=== PATIENT | male | born 1935 | race Caucasian/White ===

== ENCOUNTER → 2017-01-26 | Outpatient (CLI) | payer OTHER ==
[~2017-01-26] MED LIST: ASCA500 PO; DABI150C PO; DEPOMEDROL IX; FLNIN NAE; GLCSC750600 PO; LEVO125T7 PO; PRLSR20 PO; STLS PO
== END | disposition home or self-care (01) ==
LOC: C.LAB1850 11:25
PROVIDERS: ATTEND Internal Medicine
DX: E03.9 Hypothyroidism, unspecified (principal)

== ENCOUNTER → 2017-04-13 | Outpatient (CLI) | payer OTHER ==
[2017-04-13 09:37] LABS: BASO % 0.6 %; BASO ABS # 0.03 K/uL (0-0.2); COMPLETE YES; EOS % 4.9 %; HEMATOCRIT 45.9 % (42-52); IG% 0.2 %; LYMPH % 37.2 %; MEAN CELL VOLUME 86.1 fL (80-100); MEAN CORPUSCULAR HEMOGLOBIN 28.3 pg (25-34); MEAN CORPUSCULAR HGB CONC 32.9 g/dl (32-36); MEAN PLATELET VOLUME 8.5 fL (7.4-10.4); NEUT % 48.1 %; PLATELET COUNT 303 K/uL (130-400); RED BLOOD COUNT 5.33 M/uL (4.7-6.1); WHITE BLOOD COUNT 5.11 K/uL (4.8-10.8)
[2017-04-13 10:14] LABS: CALCIUM 9.8 mg/dl (8.5-10.1)
[2017-04-13 10:15] LABS: ALT/SGPT 20 U/L (12-78); AST/SGOT 13 U/L (15-37); BLOOD UREA NITROGEN 19 mg/dl (7-18); CARBON DIOXIDE 24 mmol/L (21-32); CHLORIDE 105 mmol/L (98-107); CHOLESTEROL 144 mg/dl (0-200); GLUCOSE 115 mg/dl (70-99); POTASSIUM 4.4 mmol/L (3.5-5.1); SODIUM 138 mmol/L (136-145); TRIGLYCERIDES 84 mg/dl (0-150); VERY LOW DENSITY LIPOPROT CALC 17 mg/dl
[2017-04-13 10:18] LABS: ALB/GLOB RATIO 0.6 (0.9-2); ALKALINE PHOSPHATASE 65 U/L (45-117); CHOLESTEROL/HDL RATIO 3.7; HDL CHOLESTEROL 39 mg/dl; LDL CHOLESTEROL CALCULATED 88 mg/dl
[2017-04-13 10:20] LABS: ESTIMATED AVERAGE GLUCOSE 123 mg/dl; HA1C FLAG Normal (Normal)
== END | disposition home or self-care (01) ==
LOC: C.LAB1850 07:16
PROVIDERS: ATTEND Internal Medicine
DX: R73.01 Impaired fasting glucose (principal); E78.5 Hyperlipidemia, unspecified; M25.50 Pain in unspecified joint; N40.0 Benign prostatic hyperplasia without lower urinary tract symptoms

== ENCOUNTER → 2017-10-20 | Outpatient (CLI) | payer OTHER ==
[2017-10-20 09:31] LABS: HEMATOCRIT 44.8 % (42-52); MEAN CORPUSCULAR HEMOGLOBIN 30.3 pg (25-34); MEAN CORPUSCULAR HGB CONC 34.4 g/dl (32-36); MEAN PLATELET VOLUME 8.9 fL (7.4-10.4); PLATELET COUNT 246 K/uL (130-400); RED BLOOD COUNT 5.09 M/uL (4.7-6.1); WHITE BLOOD COUNT 6.05 K/uL (4.8-10.8)
[2017-10-20 09:43] LABS: ALT/SGPT 18 U/L (12-78); AST/SGOT 13 U/L (15-37); BLOOD UREA NITROGEN 16 mg/dl (7-18); BUN/CREATININE RATIO 15.5 (10-20); CALCIUM 9.4 mg/dl (8.5-10.1); CARBON DIOXIDE 28 mmol/L (21-32); CHLORIDE 102 mmol/L (98-107); CHOLESTEROL 142 mg/dl (0-200); CREATININE 1.04 mg/dl (0.60-1.40); GLUCOSE 106 mg/dl (70-99); POTASSIUM 4.4 mmol/L (3.5-5.1); SODIUM 134 mmol/L (136-145); TRIGLYCERIDES 109 mg/dl (0-150); VERY LOW DENSITY LIPOPROT CALC 22 mg/dl
[2017-10-20 09:52] LABS: ESTIMATED AVERAGE GLUCOSE 114 mg/dl; HA1C FLAG Normal (Normal)
[2017-10-20 09:54] LABS: CHOLESTEROL/HDL RATIO 3.6; HDL CHOLESTEROL 40 mg/dl; LDL CHOLESTEROL CALCULATED 80 mg/dl
== END | disposition home or self-care (01) ==
LOC: C.LAB1850 07:33
PROVIDERS: ATTEND Internal Medicine
DX: I48.91 Unspecified atrial fibrillation (principal); E03.9 Hypothyroidism, unspecified; E78.5 Hyperlipidemia, unspecified; I10 Essential (primary) hypertension; R73.01 Impaired fasting glucose

== ENCOUNTER → 2018-06-07 | Outpatient (CLI) | payer OTHER | END | disposition home or self-care (01) | LOC: C.LAB1850 11:11 | PROVIDERS: ATTEND Internal Medicine | DX: R97.20 Elevated prostate specific antigen [PSA] (principal) ==